=== PATIENT | female | born 1985 | race Caucasian/White ===

== ENCOUNTER 2016-07-10 19:54 | Emergency (ER) | payer OTHER | END 2016-07-10 23:44 | disposition home or self-care (01) | LOC: ER 19:54 | DX: H81.20 Vestibular neuronitis, unspecified ear (principal); R51 Headache; R20.2 Paresthesia of skin; F41.9 Anxiety disorder, unspecified; Z79.899 Other long term (current) drug therapy; Z88.5 Allergy status to narcotic agent | CPT/HCPCS: 36415; 80307; 96361; 96374; J2550 ==